=== PATIENT | female | born 1995 | race Caucasian/White ===

== ENCOUNTER 2017-10-03 09:24 | Inpatient (IN) | payer OTHER ==
[2017-10-03] MEDS ORDERED: MISOPROSTOL 200 MCG TAB PR (10:00)
[2017-10-03] MEDS ORDERED: CARBOPROST 250 MCG INJ IM (10:00)
[2017-10-03] MEDS ORDERED: BUTORPHANOL 1 MG INJ IV (10:00)
[2017-10-03] MEDS ORDERED: LIDOCAINE 1% (MPF) 30 ML INJ INJ (10:00)
[2017-10-03] MEDS ORDERED: OXYTOCIN 30 UNITS/LR 500 ML IV (10:00)
[2017-10-03] MEDS ORDERED: METHYLERGONOVINE 0.2 MG INJ IM (10:00)
[2017-10-03] MEDS ORDERED: BUTORPHANOL 2 MG INJ IV (10:00)
[2017-10-03] MEDS: LACTATED RINGER'S 1,000 ML IV* ×4 (10:51→21:08)
[2017-10-03 11:12] LABS: ADD MAN DIFF? NO
[2017-10-03 11:14] LABS: WHITE BLOOD COUNT 9.8 10^3/ul (4.8-10.8)
[2017-10-03 11:14] LABS: BASOPHILS % 0.2 % (0.0-2.0); EOSINOPHILS % 0.3 % (0.0-7.0); HEMATOCRIT 36.2 % (37.0-47.0); HEMOGLOBIN 11.6 g/dl (12.0-16.0); LYMPHOCYTES # 2.2 10^3/ul (0.8-2.9); LYMPHOCYTES % 22.1 % (15.0-51.0); MEAN CORPUSCULAR HEMOGLOBIN 25.8 pg (29.0-33.0); MEAN CORPUSCULAR VOLUME 80.6 fl (82.0-101.0); MEAN PLATELET VOLUME 9.7 fl (7.4-10.4); MONOCYTE # 0.7 10^3/ul (0.3-0.9); MONOCYTES % 6.7 % (0.0-11.0); NEUTROPHIL # 6.9 10^3/ul (1.6-7.5); NEUTROPHILS % 70.3 % (39.0-77.0); PLATELET COUNT 313 10^3/UL (140-415); RED BLOOD COUNT 4.49 10^6/ul (4.20-5.40); RED CELL DISTRIBUTION WIDTH 13.8 % (11.5-14.5)
[2017-10-03 11:35] LABS: INR 0.97; PARTIAL THROMBOPLASTIN TIME 29.2 Sec (25.0-35.0)
[2017-10-03 12:05] LABS: HEPATITIS B SURFACE ANTIGEN NEGATIVE (NEGATIVE)
[2017-10-03] MEDS ORDERED: ONDANSETRON 4 MG INJ IV (12:30)
[2017-10-03] MEDS ORDERED: ZOLPIDEM 5 MG TAB PO (12:30)
[2017-10-03] MEDS ORDERED: DIPHENHYDRAMINE 50 MG INJ IV (12:30)
[2017-10-03] MEDS ORDERED: HYDROmorphONE 0.5 MG/0.5 ML SYG IV ×2 (12:30)
[2017-10-03] MEDS ORDERED: NALOXONE (0.4 MG/ML) INJ IV (12:30)
[2017-10-03] MEDS ORDERED: KETOROLAC 30 MG INJ IV (12:30)
[2017-10-03] MEDS: OXYTOCIN 30 UNITS/LR 500 ML IV (14:37)
[2017-10-03 15:11] LABS: RAPID PLASMA REAGIN NONREACTIVE (NR)
[2017-10-03 17:39] LABS: AMPHETAMINE/METHAMPHETAMINE Negative (NEGATIVE); BARBITURATES Negative (NEGATIVE); BENZODIAZEPINES Negative (NEGATIVE); CANNABINOIDS Negative (NEGATIVE); COCAINE Negative (NEGATIVE); OPIATES Negative (NEGATIVE)
[2017-10-03] MEDS: FENTAnyl 2MCG/ML-ROPIV 0.2% 100 ML BAG EPI (18:41)
[2017-10-04] MEDS: OXYTOCIN 30 UNITS/LR 500 ML IV ×3 (00:36→04:27)
[2017-10-04] MEDS ORDERED: LACTATED RINGER'S 1,000 ML IV* (01:10)
[2017-10-04] MEDS ORDERED: CARBOPROST 250 MCG INJ IM (01:30)
[2017-10-04] MEDS ORDERED: OXYTOCIN 30 UNITS/LR 500 ML IV (01:30)
[2017-10-04] MEDS ORDERED: METHYLERGONOVINE 0.2 MG INJ IM (01:30)
[2017-10-04] MEDS ORDERED: MISOPROSTOL 200 MCG TAB PR (01:30)
[2017-10-04] MEDS: HYDROCODONE/APAP (5/325) TAB PO ×5 (01:38→23:58)
[2017-10-04] MEDS: LANOLIN 7 GM TUBE TOP (04:27)
[2017-10-04] MEDS: BENZOCAINE 20% 56 ML SPRAY TOP (04:28)
[2017-10-04] MEDS: IBUPROFEN 600 MG TAB PO ×3 (06:00→18:12)
[2017-10-05] MEDS: HYDROCODONE/APAP (5/325) TAB PO ×2 (05:52→12:33)
[2017-10-05] MEDS: IBUPROFEN 600 MG TAB PO ×4 (06:00→17:56)
[2017-10-05 07:18] LABS: ADD MAN DIFF? NO
[2017-10-05 07:23] LABS: BASOPHILS % 0.2 % (0.0-2.0); EOSINOPHILS # 0.2 10^3/ul (0.0-0.5); EOSINOPHILS % 1.6 % (0.0-7.0); HEMATOCRIT 29.6 % (37.0-47.0); HEMOGLOBIN 9.4 g/dl (12.0-16.0); LYMPHOCYTES # 3.6 10^3/ul (0.8-2.9); LYMPHOCYTES % 36.8 % (15.0-51.0); MEAN CORPUSCULAR HEMOGLOBIN 25.8 pg (29.0-33.0); MEAN CORPUSCULAR HGB CONC 31.8 g/dl (32.0-37.0); MEAN CORPUSCULAR VOLUME 81.1 fl (82.0-101.0); MEAN PLATELET VOLUME 9.9 fl (7.4-10.4); MONOCYTE # 0.6 10^3/ul (0.3-0.9); MONOCYTES % 6.3 % (0.0-11.0); NEUTROPHIL # 5.3 10^3/ul (1.6-7.5); NEUTROPHILS % 54.9 % (39.0-77.0); PLATELET COUNT 253 10^3/UL (140-415); RED BLOOD COUNT 3.65 10^6/ul (4.20-5.40); RED CELL DISTRIBUTION WIDTH 14.4 % (11.5-14.5)
[2017-10-05 07:23] LABS: WHITE BLOOD COUNT 9.7 10^3/ul (4.8-10.8)
[2017-10-05 11:16] LABS: RUBELLA ANTIBODY - IGG <0.90 index; RUBELLA ANTIBODY - IGM <20.00 AU/mL
[2017-10-05] MEDS: DIPHTH/TET/ACEL PERTUSS (ADULT) 0.5 ML VIAL IM* (15:23)
[2017-10-05] MEDS: LANOLIN 7 GM TUBE TOP (17:56)
[2017-10-05] MEDS: BENZOCAINE 20% 56 ML SPRAY TOP (17:56)
== END 2017-10-05 20:15 | disposition home or self-care (01) | DRG 775 ==
LOC: OBT 09:24 → PP1 10-04 03:19 → L-D 09:25 → OBT 10:00 → L-D 09:55
PROC: 10E0XZZ Delivery of Products of Conception, External Approach (ICD-10-PCS; principal; 2017-10-04)
PROC: 0HQ9XZZ Repair Perineum Skin, External Approach (ICD-10-PCS; 2017-10-04)
DX: O36.5930 Maternal care for other known or suspected poor fetal growth, third trimester, not applicable or unspecified (principal); O69.81X0 Labor and delivery complicated by cord around neck, without compression, not applicable or unspecified; O70.0 First degree perineal laceration during delivery; Z3A.37 37 weeks gestation of pregnancy; Z37.0 Single live birth
CPT/HCPCS: 62319; 76815; 76818; 80307; 85025; 85610; 85730; 86592; 86762; 86850; 86900; 86901; 87340; 90715; 99464